=== PATIENT | female | born 1995 | race African-American/Black ===

== ENCOUNTER 2022-01-16 21:33 | Emergency (ER) | payer SELFPAY ==
[~2022-01-16] VITALS: Ht 175.3 cm; Wt 82.0 kg
[2022-01-16] MEDS ORDERED: D-ME473S50 PO (23:37)
[2022-01-17 00:37] VITALS: BP 133/89
== END 2022-01-17 00:37 | disposition home or self-care (01) ==
LOC: ER 21:33
DX: J40 Bronchitis, not specified as acute or chronic (principal)
CPT/HCPCS: 71045; 99283